=== PATIENT | female | born 1975 | race Hispanic/Latino ===

== ENCOUNTER 2019-10-28 18:51 | Emergency (ER) | payer OTHER ==
[2019-10-28] MEDS ORDERED: ACETAMINOPHEN 325 MG TAB ONE (19:21)
[2019-10-28] MEDS ORDERED: ONDANSETRON ODT 4 MG TAB ONE (19:22)
[2019-10-28 20:00] LABS: RAPID GROUP A STREP NEGATIVE (NEGATIVE)
== END 2019-10-28 20:30 | disposition home or self-care (01) ==
LOC: EDH 18:51
DX: J10.1 Influenza due to other identified influenza virus with other respiratory manifestations (principal); Z88.8 Allergy status to other drugs, medicaments and biological substances; Z98.51 Tubal ligation status
CPT/HCPCS: 81025; 87804; 87880